=== PATIENT | female | born 1945 | race Caucasian/White ===

== ENCOUNTER 2017-11-05 19:20 | Emergency (ER) | payer MEDICARE, BC ==
[2017-11-05] MEDS ORDERED: Nitroglycerin 0.4 MG Tab.SL SL ONE (19:43)
[2017-11-05] MEDS ORDERED: Sodium Chloride 0.9% 10 ML Syringe FLUSH PRN (19:43)
[2017-11-05] MEDS ORDERED: Aspirin 81 MG Tab.Chew PO ONE (19:43)
[2017-11-05 19:50] VITALS: BP 168/93
--- NOTE | 2017-11-05 19:50 | EDM.PDOC ---
ED HPI GENERAL MEDICAL PROBLEM - General Chief Complaint: Cardiovascular Problem Stated Complaint: CHEST PAIN Time Seen by Provider: 11/05/17 19:28 Source of Information: Reports: Patient History Limitations: Reports: No Limitations - History of Present Illness INITIAL COMMENTS - FREE TEXT/NARRATIVE: The patient presents with chest pain. This has been coming and going for a week. She has known cardiac disease with an [place], CABG in 2009, stent in 2010 and 2014. She says the pain is like pressure in her chest that radiates into her neck and that pain is more sharp. She has some shortness of breath with it. She says it is worse with exertion. She is on nitro and she has taken many nitro in the past week. She only has 2 left. She has no fever, chills, cough, congestion, abdominal pain, nausea or vomiting. She has no pain in her legs but she has a little more swelling. She currently has some chest pain but it is mild. Onset: Gradual Duration: Day(s): (1) Location: Reports: Chest Quality: Reports: Pressure Severity: Mild Improves with: Reports: Immobilization Worsens with: Reports: Movement Associated Symptoms: Reports: Chest Pain, Shortness of Breath. Denies: Fever/ Chills, Headaches, Nausea/Vomiting Chest Pain Score (Numeric/FACES): 5 - Related Data Allergies Allergy/AdvReac Type Severity Reaction Status Date / Time rofecoxib [From Vioxx] Allergy Severe Edema Verified 06/12/16 05:04 gemfibrozil [From Lopid] Allergy Unknown Cannot Verified 06/12/16 05:04 Remember atorvastatin Allergy Cannot Verified 06/12/16 05:04 Remember fluvastatin Allergy Cannot Verified 06/12/16 05:04 Remember haloperidol [From Haldol] AdvReac Intermediate Tremors Verified 06/12/16 05:04 haloperidol lactate AdvReac Intermediate Tremors Verified 06/12/16 05:04 [From Haldol] morphine AdvReac Hallucinati Verified 06/12/16 05:04 ons Home Meds: Home Meds Biotin [Hard Nails] 5,000 mcg PO DAILY 11/29/13 [History] Furosemide [Lasix] 60 mg PO DAILY 11/29/13 [History] Isosorbide Dinitrate 30 mg PO BEDTIME 11/29/13 [History] Levothyroxine Sodium [Levoxyl] 150 mcg PO DAILY 11/29/13 [History] Lisinopril 2.5 mg PO BEDTIME 11/29/13 [History] Metoprolol Succinate [Toprol XL] 25 mg PO BID 11/29/13 [History] traZODone 50 mg PO BEDTIME 11/29/13 [History] Fesoterodine Fumarate [Toviaz] 4 mg PO DAILY 08/30/14 [History] Glimepiride 1 mg PO BEDTIME 06/15/15 [History] Aspirin 81 mg PO DAILY 06/27/15 [History] Clopidogrel [Plavix] 75 mg PO DAILY 06/27/15 [History] Cyanocobalamin (Vitamin B12) [Vitamin B12] 1,000 mcg PO DAILY 06/27/15 [History] Multivitamin [Multivitamins] 1 tab PO DAILY 06/27/15 [History] Nitroglycerin [Nitrostat] 0.4 mg PO ASDIRECTED PRN 06/27/15 [History] [place]-3 Fatty Acids [[place]-3] 1,000 mg PO DAILY 06/27/15 [History] Rosuvastatin [Crestor] 5 mg PO BEDTIME 06/27/15 [History] Ubidecarenone [COQ-10] 100 mg PO DAILY 06/27/15 [History] Albuterol [Ventolin HFA] 2 inh INH QID PRN 07/13/15 [History] Loperamide HCl [Imodium A-D] 2 mg PO ASDIRECTED PRN 07/13/15 [History] Calcium Carbonate [Tums] 500 mg PO QPM 12/02/15 [History] Gluc/Olvin-Msm#2/C/D3/Tod/Born [Hwqnpvvkbo-Hmxmxaximkt-EJF] 1 tab PO DAILY 12/01 [History] Omeprazole Magnesium [Prilosec Otc] 20 mg PO DAILY 05/21/16 [History] Ondansetron [Zofran ODT] 4 mg PO Q6H PRN #20 tab.dis 05/21/16 [Rx] FLUoxetine HCl [Prozac] 60 mg PO DAILY 06/09/16 [History] oxyCODONE HCl/Acetaminophen [Percocet 5-325 mg Tablet] 1 - 2 each PO Q6HR PRN # 20 tablet 06/10/16 [Rx] HYDROmorphone [Dilaudid] 2 mg PO Q4H PRN 06/12/16 [History] Past Medical History HEENT History: Reports: Cataract Cardiovascular History: Reports: CAD, High Cholesterol, Hypertension, SOB on Exertion, Stents, Other (See Below) Other Cardiovascular History: 2010 bypass .2011 stents x 2 --LAD and circumflex. Gastrointestinal History: Reports: GERD Genitourinary History: Reports: Chronic Renal Insuffiency, Other (See Below) Other Genitourinary History: urinary frequency Musculoskeletal History: Reports: Osteoarthritis Psychiatric History: Reports: Depression Endocrine/Metabolic History: Reports: Diabetes, Type I, Osteopenia - Infectious Disease History Infectious Disease History: Reports: MRSA Other Infectious Disease History: MRSA to chest incision, tested four times since, came back negatice. - Past Surgical History HEENT Surgical History: Reports: Tonsillectomy GI Surgical History: Reports: Bariatric Procedure, Cholecystectomy Neurological Surgical History: Reports: C-Spine Musculoskeletal Surgical History: Reports: Hip Replacement, Knee Replacement Social & Family History - Tobacco Use Smoking Status *Q: Former Smoker Years of Tobacco use: 10 Packs/Tins Daily: 0.5 Used Tobacco, but Quit: Yes Month/Year Tobacco Last Used: 1983 Second Hand Smoke Exposure: No - Caffeine Use Caffeine Use: Reports: None - Alcohol Use Days Per Week of Alcohol Use: 0 - Recreational Drug Use Recreational Drug Use: No ED ROS GENERAL - Review of Systems Review Of Systems: See Below Constitutional: Reports: No Symptoms HEENT: Reports: No Symptoms Respiratory: Reports: Shortness of Breath Cardiovascular: Reports: Chest Pain Endocrine: Reports: No Symptoms GI/Abdominal: Reports: No Symptoms : Reports: No Symptoms Musculoskeletal: Reports: No Symptoms ED EXAM, GENERAL - Physical Exam Exam: See Below Exam Limited By: No Limitations General Appearance: Alert, No Apparent Distress Ears: Normal External Exam Nose: Normal Inspection Head: Atraumatic, Normocephalic Neck: Normal Inspection Respiratory/Chest: No Respiratory Distress, Lungs Clear, Normal Breath Sounds Cardiovascular: Regular Rate, Rhythm, No Edema, No Murmur GI/Abdominal: Soft, Non-Tender, No Organomegaly, No Mass Back Exam: Normal Inspection Extremities: Normal Inspection EKG INTERPRETATION EKG Date: 11/05/17 Time: 19:28 Rhythm: NSR Rate (Beats/Min): 72 [place]: RAD-Right [place] Deviation P-Wave: Present QRS: Normal ST-T: Other (Flipped T waves in the anteriolateral leads) QT: Normal Comparison: No Change EKG Interpretation Comments: No changes from prior EKG Course - Vital Signs Last Recorded V/S: Last Vital Signs Temp 97.5 F 11/05/17 19:25 Pulse 75 11/05/17 19:25 Resp 18 11/05/17 19:25 BP 168/93 H 11/05/17 19:48 Pulse Ox 99 11/05/17 19:43 - Orders/Labs/Meds Orders: Active Orders 24 hr Category Date Time Status Cardiac Monitoring [RC] . DIRECTED Care 11/05/17 19:43 Active EKG Documentation Completion [RC] STAT Care 11/05/17 19:44 Active Oxygen Therapy [RC] PRN Care 11/05/17 19:43 Active Peripheral IV Care [RC] . DIRECTED Care 11/05/17 19:44 Active Chest 1V Frontal [CR] Stat Exams 11/05/17 19:44 Taken Sodium Chloride 0.9% [Saline Flush] Med 11/05/17 19:43 Active 10 ml FLUSH ASDIRECTED PRN Peripheral IV Insertion Adult [OM.PC] Stat Oth 11/05/17 19:43 Ordered Medication Orders Sodium Chloride (Saline Flush) 10 ml FLUSH ASDIRECTED PRN PRN Reason: Keep Vein Open Last Admin: 11/05/17 20:04 Dose: 10 ml Labs: Laboratory Tests 11/05/17 11/05/17 Range/Units 19:30 19:30 WBC 7.26 (3.98-10.04) K/mm3 RBC 4.04 (3.98-5.22) M/mm3 Hgb 13.0 (11.2-15.7) gm/L Hct 39.8 (34.1-44.9) % MCV 98.5 H (79.4-94.8) fl MCH 32.2 (25.6-32.2) pg MCHC 32.7 (32.2-35.5) g/dl RDW Std Deviation 45.5 (36.4-46.3) fL Plt Count 305 (182-369) K/mm3 MPV 9.2 L (9.4-12.3) fl Neut % (Auto) 52.3 (34.0-71.1) % Lymph % (Auto) 29.5 (19.3-51.7) % [place] % (Auto) 14.3 H (4.7-12.5) % Eos % (Auto) 3.7 (0.7-5.8) Baso % (Auto) 0.1 (0.1-1.2) % Neut # (Auto) 3.79 (1.56-6.13) K/mm3 Lymph # (Auto) 2.14 (1.18-3.74) K/mm3 [place] # (Auto) 1.04 H (0.24-0.36) K/mm3 Eos # (Auto) 0.27 (0.04-0.36) K/mm3 Baso # (Auto) 0.01 (0.01-0.08) K/mm3 Sodium 134 L (136-145) mEq/L Potassium 3.9 (3.5-5.1) mEq/L Chloride 100 (98-107) mEq/L Carbon Dioxide 29 (21-32) mEq/L Anion Gap 8.9 (5-15) BUN 31 H (7-18) mg/dL Creatinine 1.5 H (0.55-1.02) mg/dL Est Cr Clr Drug Dosing 28.87 mL/min Estimated GFR (MDRD) 34 (>60) mL/min BUN/Creatinine Ratio 20.7 H (14-18) Glucose 148 H (80-115) mg/dL Calcium 10.0 (8.5-10.1) mg/dL Total Bilirubin 0.4 (0.2-1.0) mg/dL AST 19 (15-37) U/L ALT 25 (14-59) U/L Alkaline Phosphatase 72 (46-116) U/L Troponin I < 0.017 (0.00-0.056) ng/mL Total Protein 7.5 (6.4-8.2) g/dl Albumin 3.8 (3.4-5.0) g/dl Globulin 3.7 gm/dL Albumin/Globulin Ratio 1.0 (1-2) Meds: Medications Generic Name Dose Route Start Last Admin Trade Name Freq PRN Reason Stop Dose Admin Sodium Chloride 10 ml 11/05/17 19:43 11/05/17 20:04 Saline Flush FLUSH 10 ml ASDIRECTED PRN Administration Keep Vein Open Discontinued Medications Generic Name Dose Route Start Last Admin Trade Name Masoud PRN Reason Stop Dose Admin Aspirin 324 mg 11/05/17 19:43 11/05/17 19:48 Aspirin PO 11/05/17 19:44 324 mg ONETIME ONE Administration Nitroglycerin 0.4 mg 11/05/17 19:43 11/05/17 19:48 Nitrostat SL 11/05/17 19:44 0.4 mg ONETIME ONE Administration - Re-Assessments/Exams Free Text/Narrative Re-Assessment/Exam: 11/05/17 19:49 I ordered an IV saline lock, aspirin, nitro, EKG, CXR and labs. 11/05/17 19:51 Her EKG shows a NSR with flipped T waves in the anterolateral leads. No change from prior. 11/05/17 20:40 Her CXR looks good. Her CBC looks good. Her Na was a little low at 134. Her creatinine was slightly elevated at 1.5. Her glucose was slightly elevated at 148. Her troponin was negative. 11/05/17 20:48 The 1 nitro I gave her did not help. I feel she has unstable angina and may need to see cardiology. I called [facility] in [place] and Dr Umanzor accepted the patient. I will start a nitro drip and give her a bolus of heparin and a heparin drip. Departure - Departure Time of Disposition: 20:50 Disposition: DC/Tfer to Acute Hospital 02 Reason for Transfer *Q: Other Condition: Fair Clinical Impression: Unstable angina Referrals: Chet Prater MD [Primary Care Provider] - Forms: ED Department Discharge - My Orders Last 24 Hours: My Active Orders 11/05/17 19:43 Cardiac Monitoring [RC] . DIRECTED Oxygen Therapy [RC] PRN Sodium Chloride 0.9% [Saline Flush] 10 ml FLUSH ASDIRECTED PRN Peripheral IV Insertion Adult [OM.PC] Stat 11/05/17 19:44 EKG Documentation Completion [RC] STAT Peripheral IV Care [RC] . DIRECTED Chest 1V Frontal [CR] Stat - Assessment/Plan Last 24 Hours: My Active Orders 11/05/17 19:43 Cardiac Monitoring [RC] . DIRECTED Oxygen Therapy [RC] PRN Sodium Chloride 0.9% [Saline Flush] 10 ml FLUSH ASDIRECTED PRN Peripheral IV Insertion Adult [OM.PC] Stat 11/05/17 19:44 EKG Documentation Completion [RC] STAT Peripheral IV Care [RC] . DIRECTED Chest 1V Frontal [CR] Stat
[2017-11-05] MEDS ORDERED: Nitroglycerin/D5W 25 MG/250 ML BOTTLE IV SCH ×2 (20:45→21:00)
[2017-11-05] MEDS ORDERED: Heparin Sodium 5,000 Units/ML Vial IVPUSH ONE (20:46)
[2017-11-05] MEDS ORDERED: HYDROmorphone 0.5 MG/0.5 ML SYRINGE IVPUSH ONE ×2 (20:52→21:32)
[2017-11-05] MEDS ORDERED: Heparin Sodium/D5W 25,000 UNITS/500 ML BAG IV SCH (21:00)
--- NOTE | 2017-11-06 07:37 | CR ---
Chest: Frontal view of the chest was obtained. Comparison: Prior chest x-ray 12/02/15. Heart size is slightly enlarged. Previous sternotomy is noted. Lungs are clear with no acute parenchymal densities. Previous cervical spine surgery is noted as well as previous lumbar spine surgery. Degenerative change is seen within the right shoulder. Impression: 1. Incidental findings. Nothing acute is identified. Diagnostic code #2
== END 2017-11-05 21:37 ==
LOC: JD.ED 19:20
DX: I20.0 Unstable angina (principal); I12.9 Hypertensive chronic kidney disease with stage 1 through stage 4 chronic kidney disease, or unspecified chronic kidney disease; E78.00 Pure hypercholesterolemia, unspecified; N18.9 Chronic kidney disease, unspecified; E10.22 Type 1 diabetes mellitus with diabetic chronic kidney disease; Z88.5 Allergy status to narcotic agent; Z88.8 Allergy status to other drugs, medicaments and biological substances; Z79.899 Other long term (current) drug therapy; Z79.82 Long term (current) use of aspirin; Z87.891 Personal history of nicotine dependence
CPT/HCPCS: 36415; 71045; 80053; 84484; 85025; 93005; 96365; 96368; 96375; 96376; 99285; A9270; J1170; J1644; J7050; 93010; 99284-25

== ENCOUNTER 2018-07-18 10:55 | Emergency (ER) | payer MEDICARE, BC, MEDICAID ==
[2018-07-18 11:23] VITALS: BP 143/78
[2018-07-18] MEDS ORDERED: Acetaminophen/oxyCODONE 325-5 MG Tab PO ONE (12:38)
[2018-07-18] MEDS ORDERED: Lidocaine 1% 20 ML MDV INJECT ONE (12:38)
[2018-07-18] MEDS ORDERED: Lidocaine 1% 30 ML SDV ONE (12:45)
[2018-07-18] MEDS ORDERED: Lidocaine 1% 30 ML SDV INJECT STA (12:48)
--- NOTE | 2018-07-18 14:56 | EDM.PDOC ---
ED HPI GENERAL MEDICAL PROBLEM - General Chief Complaint: Skin Complaint Stated Complaint: ABCESS ON ABDOMEN Time Seen by Provider: 07/18/18 12:20 Source of Information: Reports: Patient History Limitations: Reports: No Limitations - History of Present Illness INITIAL COMMENTS - FREE TEXT/NARRATIVE: 72 year old female present for evaluation and treatment of an abscess to her right lower abdomen. Patient reports she first appreciated the abscess about one week ago. She was seen in the walk-in clinic yesterday and started on cephalexin. No I&D was preformed. Reports since being seen the area has increased in size and become more painful. She was told to come to the ER if her symptoms change or worsen. No fevers, chills, nausea or vomiting. Clinic did set her up with a follow-up appointment with surgery next week for evaluation of the abscess. Patient is on plavix and aspirin, she has currently stopped these medications since July 15 due to an upcoming carpel tunnel surgery. Patient is a diabetic with a remote history of MRSA. PCP is Dr. Prater. Treatments EDUCATIONAL FUNDRAISING DIRECTOR: Reports: Other (see below) Other Treatments EDUCATIONAL FUNDRAISING DIRECTOR: anitibioitc Right Lower Abdomen Pain Score (Numeric/FACES): 4 - Related Data Allergies Allergy/AdvReac Type Severity Reaction Status Date / Time rofecoxib [From Vioxx] Allergy Severe Edema Verified 02/12/18 11:15 gemfibrozil [From Lopid] Allergy Unknown Cannot Verified 02/12/18 11:15 Remember atorvastatin Allergy Cannot Verified 02/12/18 11:15 Remember fluvastatin Allergy Cannot Verified 02/12/18 11:15 Remember haloperidol [From Haldol] AdvReac Intermediate Tremors Verified 02/12/18 11:15 haloperidol lactate AdvReac Intermediate Tremors Verified 02/12/18 11:15 [From Haldol] morphine AdvReac Hallucinati Verified 02/12/18 11:15 ons Home Meds: Home Meds Biotin [Hard Nails] 5,000 mcg PO DAILY 11/29/13 [History] Furosemide [Lasix] 60 mg PO DAILY 11/29/13 [History] Isosorbide Dinitrate 30 mg PO BEDTIME 11/29/13 [History] Levothyroxine Sodium [Levoxyl] 150 mcg PO DAILY 11/29/13 [History] Lisinopril 2.5 mg PO BEDTIME 11/29/13 [History] Metoprolol Succinate [Toprol XL] 25 mg PO BID 11/29/13 [History] traZODone 50 mg PO BEDTIME 11/29/13 [History] Fesoterodine Fumarate [Toviaz] 4 mg PO DAILY 08/30/14 [History] Glimepiride 1 mg PO BEDTIME 06/15/15 [History] Aspirin 81 mg PO DAILY 06/27/15 [History] Clopidogrel [Plavix] 75 mg PO DAILY 06/27/15 [History] Cyanocobalamin (Vitamin B12) [Vitamin B12] 1,000 mcg PO DAILY 06/27/15 [History] Multivitamin [Multivitamins] 1 tab PO DAILY 06/27/15 [History] Nitroglycerin [Nitrostat] 0.4 mg PO ASDIRECTED PRN 06/27/15 [History] [place]-3 Fatty Acids [[place]-3] 1,000 mg PO DAILY 06/27/15 [History] Rosuvastatin [Crestor] 5 mg PO BEDTIME 06/27/15 [History] Ubidecarenone [COQ-10] 100 mg PO DAILY 06/27/15 [History] Albuterol [Ventolin HFA] 2 inh INH QID PRN 07/13/15 [History] Loperamide HCl [Imodium A-D] 2 mg PO ASDIRECTED PRN 07/13/15 [History] Calcium Carbonate [Tums] 500 mg PO QPM 12/02/15 [History] Gluc/Olvin-Msm#2/C/D3/Tod/Born [Hjwivcveax-Tcoyzqxilqf-LAI] 1 tab PO DAILY 12/01 [History] Omeprazole Magnesium [Prilosec Otc] 20 mg PO DAILY 05/21/16 [History] Ondansetron [Zofran ODT] 4 mg PO Q6H PRN #20 tab.dis 05/21/16 [Rx] FLUoxetine HCl [Prozac] 60 mg PO DAILY 06/09/16 [History] oxyCODONE HCl/Acetaminophen [Percocet 5-325 mg Tablet] 1 - 2 each PO Q6HR PRN # 20 tablet 06/10/16 [Rx] HYDROmorphone [Dilaudid] 2 mg PO Q4H PRN 06/12/16 [History] Doxycycline [Vibramycin] 100 mg PO BID #20 cap 07/18/18 [Rx] Past Medical History HEENT History: Reports: Cataract Cardiovascular History: Reports: CAD, High Cholesterol, Hypertension, SOB on Exertion, Stents, Other (See Below) Other Cardiovascular History: 2010 bypass .2011 stents x 2 --LAD and circumflex. Gastrointestinal History: Reports: GERD Genitourinary History: Reports: Chronic Renal Insuffiency, Other (See Below) Other Genitourinary History: urinary frequency Musculoskeletal History: Reports: Osteoarthritis Psychiatric History: Reports: Depression Endocrine/Metabolic History: Reports: Diabetes, Type I, Osteopenia - Infectious Disease History Infectious Disease History: Reports: MRSA Other Infectious Disease History: MRSA to chest incision, tested four times since, came back negatice. confirmed with Artem Avilez as being clear of MRSA - Past Surgical History HEENT Surgical History: Reports: Tonsillectomy GI Surgical History: Reports: Bariatric Procedure, Cholecystectomy Neurological Surgical History: Reports: C-Spine Musculoskeletal Surgical History: Reports: Hip Replacement, Knee Replacement Social & Family History - Tobacco Use Smoking Status *Q: Former Smoker Used Tobacco, but Quit: Yes Month/Year Tobacco Last Used: 1984 - Caffeine Use Caffeine Use: Reports: Soda - Recreational Drug Use Recreational Drug Use: No ED ROS GENERAL - Review of Systems Review Of Systems: See Below Constitutional: Denies: Fever, Chills GI/Abdominal: Denies: Nausea, Vomiting Skin: Reports: Wound (right lower abdomen) ED EXAM, SKIN/RASH Exam: See Below Exam Limited By: No Limitations General Appearance: Alert, WD/WN, No Apparent Distress, Obese Respiratory/Chest: No Respiratory Distress, Lungs Clear, Normal Breath Sounds Cardiovascular: Normal Peripheral Pulses, Regular Rate, Rhythm, No Murmur Psychiatric: Normal Affect, Normal Mood Skin: Warm, Dry, Normal Color, Erythema, Other (approximately golf ball sized abscess to the right lower abdomen with surrounding erythema estimated to be about 5 cm in diameter, slight serous drainage from the area; area is fluctent in the center wtih surrounding induration; tender to palpation) Location, Skin: Abdomen Characteristics: Erythematous Associated features: Tenderness, Induration, Weeping ED SKIN PROCEDURES - I&D Site: left lower abdomen Skin Prep: Chlorhexidine (Hibiciens), Sterile Drape Local Anesthesia: Lidocaine: 1% Plain Local Anesthetic Volume: 1cc Area Incised With: 11 Blade Drainage: Purulent, Bloody, Moderate Amount Probed to Break Up Loculations: Yes Packed With: 1/2 in. Iodoform Sterile Dressinx4(s) Complications: No Course - Vital Signs Last Recorded V/S: Last Vital Signs Temp 97.4 F 07/18/18 11:22 Pulse 84 07/18/18 11:22 Resp 20 07/18/18 11:22 BP 143/78 H 07/18/18 11:22 Pulse Ox 97 07/18/18 11:22 - Orders/Labs/Meds Meds: Medications Discontinued Medications Generic Name Dose Route Start Last Admin Trade Name Masoud PRN Reason Stop Dose Admin Lidocaine HCl 20 ml 07/18/18 12:38 07/18/18 12:49 Xylocaine 1% INJECT 07/18/18 12:39 Not Given ONETIME ONE Lidocaine HCl Confirm 07/18/18 12:45 07/18/18 12:49 Xylocaine-Mpf 1% Administered 07/18/18 12:46 Not Given Dose 30 ml .ROUTE .STK-MED ONE Lidocaine HCl 30 ml 07/18/18 12:48 07/18/18 12:49 Xylocaine-Mpf 1% INJECT 07/18/18 12:49 30 ml ONETIME STA Administration Oxycodone/Acetaminophen 1 tab 07/18/18 12:38 07/18/18 12:47 Percocet 325-5 Mg PO 07/18/18 12:39 1 tab ONETIME ONE Administration - Re-Assessments/Exams Free Text/Narrative Re-Assessment/Exam: 07/18/18 14:49 I&D preformed of the abscess. Pain improved after I&D. Will switch to doxycycline as she is a diabetic and has a remote history of MRSA. Encouraged to follow-up with surgery as planned. Return to the ER should symptoms change or worsen. Purulent material sent for culture. Discharge instructions as documented. Departure - Departure Time of Disposition: 14:49 Disposition: Home, Self-Care 01 Condition: Fair Clinical Impression: Abscess, Cellulitis - Discharge Information *PRESCRIPTION DRUG MONITORING PROGRAM REVIEWED*: No *COPY OF PRESCRIPTION DRUG MONITORING REPORT IN PATIENT VAN: No Prescriptions: Doxycycline [Vibramycin] 100 mg PO BID #20 cap Instructions: Cellulitis, Adult, [id number] Referrals: Chet Prater MD [Primary Care Provider] - Forms: ED Department Discharge Additional Instructions: Take the doxycycline as prescribed. 1 Twice a day. Take this with food. Stop the cephalexin. Change the bandage daily. You can shower. Follow-up with the surgeon on Saturday as planned. If the packing does fall out. No need to worry but do attempt to leave the packing in as long as possible. Please return to the ER for symptoms change or worsen. Cultures of the abscess have been obtained. We will call you in about 2 days times if the need to change your antibiotics. If you do not hear from us assume you are on the correct antibiotic and no changes are needed.
== END 2018-07-18 15:20 | disposition home or self-care (01) ==
LOC: JD.ED 10:55
DX: L03.311 Cellulitis of abdominal wall (principal); L02.211 Cutaneous abscess of abdominal wall; I12.9 Hypertensive chronic kidney disease with stage 1 through stage 4 chronic kidney disease, or unspecified chronic kidney disease; E10.22 Type 1 diabetes mellitus with diabetic chronic kidney disease; N18.9 Chronic kidney disease, unspecified; Z87.891 Personal history of nicotine dependence; Z88.8 Allergy status to other drugs, medicaments and biological substances; Z88.5 Allergy status to narcotic agent; Z79.899 Other long term (current) drug therapy; Z79.82 Long term (current) use of aspirin
CPT/HCPCS: 10060; 87075; 87205; 99283; A9270

== ENCOUNTER 2018-10-22 07:20 | Emergency (ER) | payer MEDICARE, BC ==
[2018-10-22] MEDS ORDERED: HYDROmorphone 1 MG/ML Syringe IVPUSH STA ×2 (07:54→08:56)
[2018-10-22] MEDS ORDERED: Ondansetron 4 MG/2 ML SDV IVPUSH ONE ×2 (07:57→08:56)
--- NOTE | 2018-10-22 07:59 | EDM.PDOC ---
ED HPI GENERAL MEDICAL PROBLEM - General Chief Complaint: Chest Pain Stated Complaint: CHEST PAIN Time Seen by Provider: 10/22/18 07:32 Source of Information: Reports: Patient History Limitations: Reports: No Limitations - History of Present Illness INITIAL COMMENTS - FREE TEXT/NARRATIVE: The patient states that she developed sudden onset retrosternal chest pain around 07:15 this morning, just after she has injected with Lexiscan for a scheduled stress test. She noticed at the time that her heart rate went up and her blood pressure went low. The pain is sharp and heavy in character. It is a pain, not a discomfort. It radiates to her jaw, the left more than the right. She denies having shortness of breath, but states like it feels like it takes an increased effort to breathe. She states that she was diaphoretic initially, but not now. No associated nausea. It is unclear if she has an associated sense of impending doom. She states that her symptoms are the same as when she suffered a IL in 2014, although different than when she was suffering angina prior to a two-vessel CABG in 2009 and coronary stent placements in 2010 and 2017. Prior to those events, the patient had more jaw pain, and not so much chest pain. The patient states that she took one of her own sublingual nitroglycerin tablets after her blood pressure improved, and that the nitroglycerin improved her symptoms. The patient's PCP is Dr. Prater. The patient's Marketing Senior Recruiter is Dr. Phillips. Mid-Sternal Chest Pain Score (Numeric/FACES): 3 - Related Data Allergies Allergy/AdvReac Type Severity Reaction Status Date / Time rofecoxib [From Vioxx] Allergy Intermediate Edema Verified 10/22/18 07:28 gemfibrozil [From Lopid] Allergy Unknown Cannot Verified 10/22/18 07:28 Remember atorvastatin Allergy Cannot Verified 10/22/18 07:28 Remember fluvastatin Allergy Cannot Verified 10/22/18 07:28 Remember haloperidol [From Haldol] AdvReac Intermediate Tremors Verified 10/22/18 07:28 haloperidol lactate AdvReac Intermediate Tremors Verified 10/22/18 07:28 [From Haldol] morphine AdvReac Hallucinati Verified 10/22/18 07:28 ons Home Meds: Home Meds Biotin [Hard Nails] 5,000 mcg PO DAILY 11/29/13 [History] Isosorbide Dinitrate 30 mg PO BEDTIME 11/29/13 [History] Levothyroxine Sodium [Levoxyl] 150 mcg PO DAILY 11/29/13 [History] traZODone 50 mg PO BEDTIME 11/29/13 [History] Fesoterodine Fumarate [Toviaz] 8 mg PO DAILY 08/30/14 [History] Glimepiride 2 mg PO BEDTIME 06/15/15 [History] Aspirin 81 mg PO DAILY 06/27/15 [History] Clopidogrel [Plavix] 75 mg PO DAILY 06/27/15 [History] Cyanocobalamin (Vitamin B12) [Vitamin B12] 1,000 mcg PO DAILY 06/27/15 [History] Multivitamin [Multivitamins] 1 tab PO DAILY 06/27/15 [History] Nitroglycerin [Nitrostat] 0.4 mg PO ASDIRECTED PRN 06/27/15 [History] [place]-3 Fatty Acids [[place]-3] 1,000 mg PO DAILY 06/27/15 [History] Rosuvastatin [Crestor] 20 mg PO BEDTIME 06/27/15 [History] Ubidecarenone [COQ-10] 100 mg PO DAILY 06/27/15 [History] Omeprazole Magnesium [Prilosec Otc] 20 mg PO DAILY 05/21/16 [History] FLUoxetine HCl [Prozac] 60 mg PO DAILY 06/09/16 [History] Calcium Carb & Citrate/Vit D3 [Citracal + D ER] 200 - 600 mg PO BID 10/22/18 [ History] Cholecalciferol (Vitamin D3) [Vitamin D3] 5,000 unit PO DAILY 10/22/18 [History] Ciclopirox/Ure/Camph/Menth/Euc [Ciclopirox 8% Treatment Kit] 1 applic TOP BID [History] Denosumab [Prolia] 60 mg INJECT ASDIRECTED 10/22/18 [History] L Acidophil/B Lactis/B Longum [Florajen3] 460 mg PO DAILY 10/22/18 [History] Metoprolol Tartrate 12.5 mg PO DAILY 10/22/18 [History] Phenylephrine HCl/[place] Butter [Preparation H Suppository] 1 insert RECTAL ASDIRECTED PRN 10/22/18 [History] Triamcinolone Acetonide [Triamcinolone Acetonide 0.025%] 1 applic TOP BID PRN [History] White Petrolatum-Mineral Oil 1 drop EYEBOTH QID 10/22/18 [History] Past Medical History HEENT History: Reports: Cataract Cardiovascular History: Reports: CAD, High Cholesterol, Hypertension, IL (2014) Gastrointestinal History: Reports: GERD Genitourinary History: Reports: Chronic Renal Insuffiency Musculoskeletal History: Reports: Fracture (right ankle), Osteoarthritis, Osteoporosis Psychiatric History: Reports: Depression, Other (See Below) (Irritable bowel syndrome) Endocrine/Metabolic History: Reports: Diabetes, Type II, Hypothyroidism, Obesity /BMI 30+ - Infectious Disease History Infectious Disease History: Reports: MRSA - Past Surgical History HEENT Surgical History: Reports: Oral Surgery (wisdom teeth extraction), Tonsillectomy (1977) Cardiovascular Surgical History: Reports: Coronary Artery Bypass (2 vessel, 2009 ), Coronary Artery Stent (3 total, LAD + Cx. 2010 & 2017) GI Surgical History: Reports: Bariatric Procedure (vertical banded gastroplasty ("stomach stapling") 1980), Cholecystectomy (1998) Neurological Surgical History: Reports: C-Spine (C4-C6 ACDF), Lumbar Spine ( Lumbar fusion x 6) Musculoskeletal Surgical History: Reports: Hip Replacement (bilateral), Knee Replacement (bilateral) Social & Family History - Tobacco Use Smoking Status *Q: Former Smoker Years of Tobacco use: 10 Packs/Tins Daily: 1 Month/Year Tobacco Last Used: Quit 1983 Second Hand Smoke Exposure: No - Caffeine Use Caffeine Use: Reports: None - Alcohol Use Alcohol Use History: Yes Alcohol Use Frequency: Rarely - Recreational Drug Use Recreational Drug Use: No - Living Situation & Occupation Living situation: Reports: Single, Alone 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 ED EXAM, GENERAL - Physical Exam Exam: See Below Exam Limited By: No Limitations General Appearance: Alert, WD/WN, No Apparent Distress Eye Exam: Bilateral Eye: EOMI, Normal Inspection Ears: Normal External Exam, Hearing Grossly Normal Nose: Normal Inspection Throat/Mouth: Normal Inspection, Normal Lips, Normal Voice, No Airway Compromise Head: Atraumatic, Normocephalic Neck: Normal Inspection, Full Range of Motion Respiratory/Chest: No Respiratory Distress, Lungs Clear, Normal Breath Sounds, No Accessory Muscle Use, Chest Non-Tender (including palpation of the sternum) Cardiovascular: Normal Peripheral Pulses, Regular Rate, Rhythm, No Gallop, No JVD, No Murmur, No Rub Peripheral Pulses: 4+: Radial (L), Radial (R) GI/Abdominal: Normal Bowel Sounds, Soft, Non-Tender, No Organomegaly, No Distention, No Abnormal Bruit, No Mass, Other (Obese) (Female) Exam: Deferred Rectal (Female) Exam: Deferred Back Exam: Normal Inspection, Full Range of Motion Extremities: Normal Inspection, Normal Range of Motion, Normal Capillary Refill Neurological: Alert, Oriented, Normal Cognition, No Motor/Sensory Deficits Psychiatric: Normal Affect Skin Exam: Warm, Dry, Intact, Normal Color, No Rash Course - Vital Signs Last Recorded V/S: Last Vital Signs Temp 36.2 C 10/22/18 10:20 Pulse 70 10/22/18 10:20 Resp 19 10/22/18 10:20 BP 106/49 L 10/22/18 10:20 Pulse Ox 95 10/22/18 10:20 - Orders/Labs/Meds Orders: Active Orders 24 hr Category Date Time Status EKG Documentation Completion [RC] STAT Care 10/22/18 07:54 Active Labs: Laboratory Tests 10/22/18 10/22/18 10/22/18 Range/Units 08:07 08:07 11:25 WBC 8.61 (3.98-10.04) K/mm3 RBC 4.20 (3.98-5.22) M/mm3 Hgb 13.4 (11.2-15.7) gm/L Hct 40.9 (34.1-44.9) % MCV 97.4 H (79.4-94.8) fl MCH 31.9 (25.6-32.2) pg MCHC 32.8 (32.2-35.5) g/dl RDW Std Deviation 45.1 (36.4-46.3) fL Plt Count 322 (182-369) K/mm3 MPV 9.1 L (9.4-12.3) fl Neutrophils % (Manual) 76 H (40-60) % Band Neutrophils % 0 (0-10) % Lymphocytes % (Manual) 18 L (20-40) % Atypical Lymphs % 0 % Monocytes % (Manual) 6 (2-10) % Eosinophils % (Manual) 0 L (0.7-5.8) % Basophils % (Manual) 0 L (0.1-1.2) Platelet Estimate Adequate Polychromasia 1+ slight Anisocytosis 1+ slight RBC Morph Comment Abnormal Sodium 137 (136-145) mEq/L Potassium 4.2 (3.5-5.1) mEq/L Chloride 102 (98-107) mEq/L Carbon Dioxide 26 (21-32) mEq/L Anion Gap 13.2 (5-15) BUN 17 (7-18) mg/dL Creatinine 1.3 H (0.55-1.02) mg/dL Est Cr Clr Drug Dosing 32.83 mL/min Estimated GFR (MDRD) 40 (>60) mL/min BUN/Creatinine Ratio 13.1 L (14-18) Glucose 268 H (83-115) mg/dL Calcium 9.3 (8.5-10.1) mg/dL Total Bilirubin 0.3 (0.2-1.0) mg/dL AST 19 (15-37) U/L ALT 31 (14-59) U/L Alkaline Phosphatase 74 (46-116) U/L Troponin I < 0.017 < 0.017 (0.00-0.056) ng/mL Total Protein 6.8 (6.4-8.2) g/dl Albumin 3.2 L (3.4-5.0) g/dl Globulin 3.6 gm/dL Albumin/Globulin Ratio 0.9 L (1-2) Meds: Medications Discontinued Medications Generic Name Dose Route Start Last Admin Trade Name Freq PRN Reason Stop Dose Admin Hydromorphone HCl 0.5 mg 10/22/18 07:54 10/22/18 08:00 Dilaudid IVPUSH 10/22/18 07:55 0.5 mg ONETIME STA Administration Hydromorphone HCl 0.5 mg 10/22/18 08:56 10/22/18 09:10 Dilaudid IVPUSH 10/22/18 08:57 0.5 mg ONETIME STA Administration Ondansetron HCl 4 mg 10/22/18 07:57 10/22/18 08:03 Zofran IVPUSH 10/22/18 07:58 4 mg ONETIME ONE Administration Ondansetron HCl 4 mg 10/22/18 08:56 10/22/18 09:08 Zofran IVPUSH 10/22/18 08:57 4 mg ONETIME ONE Administration - Re-Assessments/Exams Free Text/Narrative Re-Assessment/Exam: 10/22/18 07:56 I suspect that the patient is suffering from angina, although I also anticipate that her initial labs will be negative. Her ECG shows some ST depressions in the anterolateral leads, although these appear to be chronic. Her T waves were inverted on her previous ECG, but are upright today. The patient will be given some Dilaudid and Zofran to help with her discomfort. Presuming her initial troponin is negative, we will need to draw a second troponin to exclude a IL. 10/22/18 08:52 Portable chest radiograph reviewed. There is mild cardiomegaly. No pulmonary vascular congestion. No pleural effusion seen on this AP view. No focal infiltrate. No pneumothorax. Sternotomy wires noted. Cervical and lumbar fusion hardware noted. Degenerative changes to both shoulders incidentally noted. Formal read per the Radiologist pending. The patient's CBC is unremarkable. The patient's CMP is remarkable for creatinine slightly elevated at 1.3, and a blood glucose elevated at 268. It is otherwise unremarkable. The patient's initial troponin is undetectably low. I have ordered a second troponin to be drawn at 11:15, 4 hours after the onset of her chest pain. 10/22/18 08:56 The patient states that the Dilaudid that she received earlier helped with her chest pain, but that it is back. I will order some additional Dilaudid and Zofran. 10/22/18 10:07 Today's Lexiscan stress test results are reported by Dr. Frausto as: Symptomatically positive electrocardiographically negative Lexiscan stress test. She tolerated the procedure well, was discharged in good condition to the x-ray department to complete the stress test protocol. 10/22/18 12:45 The patient's repeat troponin remains undetectably low. Myocardial perfusion stress test report is read as: 1. Findings which are felt compatible with reversible ischemia within portions of the anterior and lateral pineda. This finding is an interval change from previous exam. 2. No additional abnormality is seen. 10/22/18 13:00 Case discussed with the patient's Marketing Senior Recruiter, Dr. Hyde, at 12:53. He reviewed his prior notes. He recommended that the patient stay on her Imdur, then call to make an appointment to see him. 10/22/18 13:04 Test results and my conversation with Dr. Hyde discussed with the patient. The patient states that she is feeling well. I will discharge her home. Departure - Departure Time of Disposition: 13:04 Disposition: Home, Self-Care 01 Condition: Good Clinical Impression: Angina pectoris, Hyperglycemia due to type 2 diabetes mellitus, Chronic renal insufficiency Referrals: Chet Prater MD [Primary Care Provider] - Moris Hyde MD [Ordering Only Provider] - Forms: ED Department Discharge Additional Instructions: You were seen in the emergency room after developing chest pain and jaw pain while getting a stress test. Workup in the ER included blood work, a portable chest x-ray, and an ECG. Your blood sugar was found to be elevated at 268, and you were found to have mild renal insufficiency. Otherwise, the remainder of your workup was unremarkable. You have not suffered a heart attack. Your case was discussed with your Marketing Senior Recruiter, Dr. Hyde, who recommended that you continue to take Imdur 30 mg at bedtime, and call his office to make an appointment to see him. His staff will be expecting your call. If any other problems, please do not hesitate to return to the ER. - My Orders Last 24 Hours: My Active Orders 10/22/18 07:54 EKG Documentation Completion [RC] STAT - Assessment/Plan Last 24 Hours: My Active Orders 10/22/18 07:54 EKG Documentation Completion [RC] STAT
--- NOTE | 2018-10-22 09:06 | CR ---
Chest: Portable view of the chest was obtained. Comparison: Prior chest x-ray of 11/05/17. Heart size is slightly enlarged. Previous sternotomy is noted. Lungs show no acute parenchymal change. Degenerative change is noted within both shoulders. Previous cervical spine and lumbar spine surgery is noted. Impression: 1. Incidental findings. Nothing acute is seen on portable chest x-ray. Diagnostic code #2
[2018-10-22 13:07] VITALS: BP 120/65
== END 2018-10-22 13:15 | disposition home or self-care (01) ==
LOC: JD.ED 07:20 → SUPCPDRO 07:20 → JD.ED 13:15
DX: I20.9 Angina pectoris, unspecified (principal); I12.9 Hypertensive chronic kidney disease with stage 1 through stage 4 chronic kidney disease, or unspecified chronic kidney disease; N18.9 Chronic kidney disease, unspecified; E11.65 Type 2 diabetes mellitus with hyperglycemia; E11.22 Type 2 diabetes mellitus with diabetic chronic kidney disease; E03.9 Hypothyroidism, unspecified; E78.00 Pure hypercholesterolemia, unspecified; I25.2 Old myocardial infarction; K21.9 Gastro-esophageal reflux disease without esophagitis; Z88.8 Allergy status to other drugs, medicaments and biological substances; Z88.5 Allergy status to narcotic agent; Z79.899 Other long term (current) drug therapy; Z79.82 Long term (current) use of aspirin; Z79.01 Long term (current) use of anticoagulants; Z87.891 Personal history of nicotine dependence
CPT/HCPCS: 36415; 71045; 80053; 84484; 85007; 85027; 93005; 96374; 96375; 96376; 99285; J1170; J2405; 93010

== ENCOUNTER 2019-05-04 10:15 | Emergency (ER) | payer MEDICARE, BC ==
[2019-05-04 10:25] VITALS: BP 98/82; PULSE 95
[2019-05-04] MEDS ORDERED: Ondansetron 4 MG Tab.DIS PO ONE (10:57)
--- NOTE | 2019-05-04 11:12 | EDM.PDOC ---
ED HPI GENERAL MEDICAL PROBLEM - General Chief Complaint: Allergic Reaction Stated Complaint: REACTION TO NEW MEDICATION Time Seen by Provider: 05/04/19 10:51 Source of Information: Reports: Patient History Limitations: Reports: No Limitations - History of Present Illness INITIAL COMMENTS - FREE TEXT/NARRATIVE: The patient presents with a headache, nausea and vomiting. She says she started on wellbutrin 2 times per day. She woke up this morning with a headache , nausea and vomiting. She remembers in the past with haldol she reacted this way. She also has been having some reflux symptoms. She has no shortness of breath with it. She has no abdominal pain. She has no numbness or weakness. She says the headache is like a cap on her head. Onset: Gradual Duration: Hour(s): Location: Reports: Head Quality: Reports: Ache Severity: Moderate Improves with: Reports: None Worsens with: Reports: None Associated Symptoms: Reports: Chest Pain, Headaches. Denies: Cough, Fever/ Chills, Nausea/Vomiting, Shortness of Breath Headache Pain Score (Numeric/FACES): 3 - Related Data Allergies Allergy/AdvReac Type Severity Reaction Status Date / Time rofecoxib [From Vioxx] Allergy Intermediate Edema Verified 05/04/19 10:25 gemfibrozil [From Lopid] Allergy Unknown Cannot Verified 05/04/19 10:25 Remember atorvastatin Allergy Cannot Verified 05/04/19 10:25 Remember fluvastatin Allergy Cannot Verified 05/04/19 10:25 Remember haloperidol [From Haldol] AdvReac Intermediate Tremors Verified 05/04/19 10:25 haloperidol lactate AdvReac Intermediate Tremors Verified 05/04/19 10:25 [From Haldol] morphine AdvReac Hallucinati Verified 05/04/19 10:25 ons Home Meds: Home Meds Biotin [Hard Nails] 5,000 mcg PO DAILY 11/29/13 [History] Isosorbide Dinitrate 60 mg PO BEDTIME 11/29/13 [History] Levothyroxine Sodium [Levoxyl] 150 mcg PO DAILY 11/29/13 [History] Fesoterodine Fumarate [Toviaz] 8 mg PO DAILY 08/30/14 [History] Glimepiride 4 mg PO DAILY 06/15/15 [History] Aspirin 81 mg PO DAILY 06/27/15 [History] Clopidogrel [Plavix] 75 mg PO DAILY 06/27/15 [History] Cyanocobalamin (Vitamin B12) [Vitamin B12] 1,000 mcg PO DAILY 06/27/15 [History] Multivitamin [Multivitamins] 1 tab PO DAILY 06/27/15 [History] Nitroglycerin [Nitrostat] 0.4 mg PO ASDIRECTED PRN 06/27/15 [History] [place]-3 Fatty Acids [[place]-3] 1,000 mg PO DAILY 06/27/15 [History] Rosuvastatin [Crestor] 10 mg PO BEDTIME 06/27/15 [History] Ubidecarenone [COQ-10] 100 mg PO DAILY 06/27/15 [History] Omeprazole Magnesium [Prilosec Otc] 40 mg PO DAILY 05/21/16 [History] FLUoxetine HCl [Prozac] 60 mg PO DAILY 06/09/16 [History] Calcium Carb & Citrate/Vit D3 [Citracal + D ER] 200 - 600 mg PO BID 10/22/18 [ History] Cholecalciferol (Vitamin D3) [Vitamin D3] 5,000 unit PO DAILY 10/22/18 [History] Ciclopirox/Ure/Camph/Menth/Euc [Ciclopirox 8% Treatment Kit] 1 applic TOP BID [History] Denosumab [Prolia] 60 mg INJECT ASDIRECTED 10/22/18 [History] Metoprolol Tartrate 12.5 mg PO DAILY 10/22/18 [History] Phenylephrine HCl/[place] Butter [Preparation H Suppository] 1 insert RECTAL ASDIRECTED PRN 10/22/18 [History] Triamcinolone Acetonide [Triamcinolone Acetonide 0.025%] 1 applic TOP BID PRN [History] White Petrolatum-Mineral Oil 1 drop EYEBOTH QID 10/22/18 [History] Dulaglutide [Trulicity] 75 mg INJECT WEEKLY 05/04/19 [History] Ezetimibe [Zetia] 10 mg PO BEDTIME 05/04/19 [History] L.acidoph,Paracasei, B.lactis [Probiotic] 1 cap PO DAILY 05/04/19 [History] Ondansetron [Zofran ODT] 4 mg PO Q6H PRN #20 tab.dis 10/21/19 [Rx] Past Medical History HEENT History: Reports: Cataract Cardiovascular History: Reports: CAD, High Cholesterol, Hypertension, [place] Other Cardiovascular History: 2010 bypass .2011 stents x 2 --LAD and circumflex. Gastrointestinal History: Reports: GERD Genitourinary History: Reports: Chronic Renal Insuffiency Other Genitourinary History: urinary frequency Musculoskeletal History: Reports: Fracture, Osteoarthritis, Osteoporosis Psychiatric History: Reports: Depression, Other (See Below) Endocrine/Metabolic History: Reports: Diabetes, Type II, Hypothyroidism, Obesity /BMI 30+ - Infectious Disease History Infectious Disease History: Reports: MRSA Other Infectious Disease History: MRSA to chest incision, tested four times since, came back negative. confirmed with Artem Alaniz'gilson as being clear of MRSA - Past Surgical History HEENT Surgical History: Reports: Oral Surgery, Tonsillectomy Cardiovascular Surgical History: Reports: Coronary Artery Bypass, Coronary Artery Stent GI Surgical History: Reports: Bariatric Procedure, Cholecystectomy Neurological Surgical History: Reports: C-Spine, Lumbar Spine Musculoskeletal Surgical History: Reports: Hip Replacement, Knee Replacement Social & Family History - Tobacco Use Smoking Status *Q: Never Smoker - Caffeine Use Caffeine Use: Reports: Soda - Recreational Drug Use Recreational Drug Use: No - Living Situation & Occupation Living situation: Reports: Single, Alone 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 Denies: Abdominal Pain : Reports: No Symptoms Musculoskeletal: Reports: No Symptoms Skin: Reports: No Symptoms Neurological: Reports: Headache ED EXAM GENERAL NO PERIP PULSE - Physical Exam Exam: See Below Exam Limited By: No Limitations General Appearance: Alert, No Apparent Distress Ears: Normal External Exam Nose: Normal Inspection Head: Atraumatic, Normocephalic Neck: Normal Inspection Respiratory/Chest: No Respiratory Distress, Lungs Clear, Normal Breath Sounds Cardiovascular: Regular Rate, Rhythm, No Edema, No Murmur GI/Abdominal: Soft, Non-Tender, No Organomegaly, No Mass Back Exam: Normal Inspection Extremities: Normal Inspection Neurological: Alert, Oriented, No Motor/Sensory Deficits EKG INTERPRETATION EKG Date: 05/04/19 Time: 11:35 Rhythm: NSR Rate (Beats/Min): [address] [place]: Normal P-Wave: Present QRS: Normal ST-T: Normal QT: Normal Course - Vital Signs Last Recorded V/S: Last Vital Signs Temp 96.0 F 05/04/19 10:22 Pulse 95 05/04/19 10:22 Resp 18 05/04/19 10:22 BP 98/82 05/04/19 10:22 Pulse Ox - Orders/Labs/Meds Orders: Active Orders 24 hr Category Date Time Status Cardiac Monitoring [RC] . DIRECTED Care 05/04/19 10:56 Active EKG Documentation Completion [RC] STAT Care 05/04/19 10:56 Active Head wo Cont [CT] Stat Exams 05/04/19 10:59 Taken Labs: Laboratory Tests 05/04/19 05/04/19 05/04/19 Range/Units 11:20 11:20 11:40 WBC 8.37 (3.98-10.04) K/mm3 RBC 3.99 (3.98-5.22) M/mm3 Hgb 12.4 (11.2-15.7) gm/dl Hct 38.7 (34.1-44.9) % MCV 97.0 H (79.4-94.8) fl MCH 31.1 (25.6-32.2) pg MCHC 32.0 L (32.2-35.5) g/dl RDW Std Deviation 47.6 H (36.4-46.3) fL Plt Count 326 (182-369) K/mm3 MPV 9.2 L (9.4-12.3) fl Neut % (Auto) 67.1 (34.0-71.1) % Lymph % (Auto) 16.2 L (19.3-51.7) % [place] % (Auto) 12.8 H (4.7-12.5) % Eos % (Auto) 3.5 (0.7-5.8) Baso % (Auto) 0.2 (0.1-1.2) % Neut # (Auto) 5.61 (1.56-6.13) K/mm3 Lymph # (Auto) 1.36 (1.18-3.74) K/mm3 [place] # (Auto) 1.07 H (0.24-0.36) K/mm3 Eos # (Auto) 0.29 (0.04-0.36) K/mm3 Baso # (Auto) 0.02 (0.01-0.08) K/mm3 Sodium 138 (136-145) mEq/L Potassium 4.0 (3.5-5.1) mEq/L Chloride 102 (98-107) mEq/L Carbon Dioxide 30 (21-32) mEq/L Anion Gap 10.0 (5-15) BUN 15 (7-18) mg/dL Creatinine 1.3 H (0.55-1.02) mg/dL Est Cr Clr Drug Dosing 32.83 mL/min Estimated GFR (MDRD) 40 (>60) mL/min BUN/Creatinine Ratio 11.5 L (14-18) Glucose 156 H (83-115) mg/dL Calcium 9.9 (8.5-10.1) mg/dL Total Bilirubin 0.5 (0.2-1.0) mg/dL AST 19 (15-37) U/L ALT 31 (14-59) U/L Alkaline Phosphatase 59 (46-116) U/L Creatine Kinase 67 (26-192) U/L Total Protein 6.8 (6.4-8.2) g/dl Albumin 3.3 L (3.4-5.0) g/dl Globulin 3.5 gm/dL Albumin/Globulin Ratio 0.9 L (1-2) Urine Color Yellow (Yellow) Urine Appearance Clear (Clear) Urine pH 7.0 (5.0-8.0) Ur Specific [place] 1.020 (1.005-1.030) Urine Protein Negative (Negative) Urine Glucose (UA) Negative (Negative) Urine Ketones Negative (Negative) Urine Occult Blood Negative (Negative) Urine Nitrite Negative (Negative) Urine Bilirubin Negative (Negative) Urine Urobilinogen 0.2 (0.2-1.0) Ur Leukocyte Esterase 1+ H (Negative) Urine RBC 0-5 (0-5) /hpf Urine WBC 10-20 H (0-5) /hpf Ur Squamous Epith Cells 5-10 H (0-5) /hpf Urine Bacteria Few (FEW) /hpf Urine Mucus Few (FEW) /hpf Meds: Medications Discontinued Medications Generic Name Dose Route Start Last Admin Trade Name Freq PRN Reason Stop Dose Admin Ondansetron HCl 4 mg 10/21/19 10:57 05/04/19 11:09 Zofran Odt PO 05/04/19 10:58 4 mg ONETIME ONE Administration - Re-Assessments/Exams Free Text/Narrative Re-Assessment/Exam: 05/04/19 11:36 I ordered an EKG, CT of her head labs, UA and zofran 4mg PO. 05/04/19 12:25 Her CBC looks good. Her creatinine was elevated slightly at 1.3. Her glucose is elevated at 156. Her UA is negative. 05/04/19 12:26 Her EKG shows nothing acute. The CT of her head looks good. Departure - Departure Time of Disposition: 12:30 Disposition: Home, Self-Care 01 Condition: Good Clinical Impression: Headache Qualifiers: Headache type: unspecified Headache chronicity pattern: acute headache Intractability: not intractable Qualified Code(s): R51 - Headache Nausea & vomiting Qualifiers: Vomiting type: unspecified Vomiting Intractability: non-intractable Qualified Code(s): R11.2 - Nausea with vomiting, unspecified Adverse reaction to antidepressant drug Qualifiers: Encounter type: initial encounter Qualified Code(s): T43.205A - Adverse effect of unspecified antidepressants, initial encounter - Discharge Information *PRESCRIPTION DRUG MONITORING PROGRAM REVIEWED*: No *COPY OF PRESCRIPTION DRUG MONITORING REPORT IN PATIENT VAN: No Prescriptions: Ondansetron [Zofran ODT] 4 mg PO Q6H PRN #20 tab.dis PRN Reason: Nausea\vomiting Referrals: Chet Prater MD [Primary Care Provider] - 1 Week Forms: ED Department Discharge Additional Instructions: Take a dose of Wellbutrin tonight and then a half a dose tomorrow night and then you can stop. Take tylenol or motrin for any headache. Take zofran every 6 hours as needed for nausea and vomiting. Please return if you are worse. - My Orders Last 24 Hours: My Active Orders 05/04/19 10:56 Cardiac Monitoring [RC] . DIRECTED EKG Documentation Completion [RC] STAT 05/04/19 10:59 Head wo Cont [CT] Stat - Assessment/Plan Last 24 Hours: My Active Orders 05/04/19 10:56 Cardiac Monitoring [RC] . DIRECTED EKG Documentation Completion [RC] STAT 05/04/19 10:59 Head wo Cont [CT] Stat
--- NOTE | 2019-05-04 12:29 | CT ---
Head CT Technique: Multiple axial sections through the brain were obtained. Intravenous contrast was not utilized. Comparison: No prior head CT exam. Findings: Ventricles along with basal cisterns and sulci over the convexities are mildly prominent. No abnormal parenchymal densities are seen. No evidence of intracranial hemorrhage. No midline shift or mass effect is seen. Mastoid sinuses are clear. Visualized paranasal sinuses are clear. No acute calvarial abnormality is appreciated. Impression: 1. No acute abnormality is appreciated on noncontrast head CT exam. Diagnostic code #2
== END 2019-05-04 12:45 | disposition home or self-care (01) ==
LOC: JD.ED 10:15
DX: R51 Headache (principal); R11.2 Nausea with vomiting, unspecified; T43.295A Adverse effect of other antidepressants, initial encounter; I25.10 Atherosclerotic heart disease of native coronary artery without angina pectoris; E78.00 Pure hypercholesterolemia, unspecified; I25.2 Old myocardial infarction; E11.22 Type 2 diabetes mellitus with diabetic chronic kidney disease; I12.9 Hypertensive chronic kidney disease with stage 1 through stage 4 chronic kidney disease, or unspecified chronic kidney disease; N18.9 Chronic kidney disease, unspecified; K21.9 Gastro-esophageal reflux disease without esophagitis; E03.9 Hypothyroidism, unspecified; F32.9 Major depressive disorder, single episode, unspecified; M81.0 Age-related osteoporosis without current pathological fracture; M19.90 Unspecified osteoarthritis, unspecified site; E66.9 Obesity, unspecified; Z68.39 Body mass index [BMI] 39.0-39.9, adult; Z88.6 Allergy status to analgesic agent; Z88.8 Allergy status to other drugs, medicaments and biological substances; Z88.5 Allergy status to narcotic agent; Z95.1 Presence of aortocoronary bypass graft; Z95.5 Presence of coronary angioplasty implant and graft; Z79.890 Hormone replacement therapy; Z79.899 Other long term (current) drug therapy; Z79.82 Long term (current) use of aspirin; Z79.84 Long term (current) use of oral hypoglycemic drugs; Z79.02 Long term (current) use of antithrombotics/antiplatelets
CPT/HCPCS: 36415; 70450; 80053; 81001; 82550; 85025; 93005; 99284; A9270; 93010; 99283

== ENCOUNTER 2019-06-22 12:53 | Emergency (ER) | payer MEDICARE, BC ==
[2019-06-22 12:57] VITALS: BP 186/99; PULSE 90
[2019-06-22] MEDS ORDERED: Sodium Chloride 0.9% 10 ML Syringe FLUSH PRN (13:04)
--- NOTE | 2019-06-22 13:20 | EDM.PDOC ---
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 Hx of CAD. Last MT about 4 yrs ago. Hx Htn. Saw Cardiology about a month ago and was doing well at that time. Has been having more frequent chest pains the past 2 weeks and especially the last 3 to 4 days. No cough, fever, chills, nausea, vomiting or diaphoresis. 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: Reports: Nitroglycerin Middle Chest Pain Score (Numeric/FACES): 6 - Related Data Allergies Allergy/AdvReac Type Severity Reaction Status Date / Time rofecoxib [From Vioxx] Allergy Intermediate Edema Verified 06/22/19 12:57 gemfibrozil [From Lopid] Allergy Unknown Cannot Verified 06/22/19 12:57 Remember atorvastatin Allergy Cannot Verified 06/22/19 12:57 Remember bupropion Allergy Tremors Verified 06/22/19 12:57 fluvastatin Allergy Cannot Verified 06/22/19 12:57 Remember haloperidol [From Haldol] AdvReac Intermediate Tremors Verified 06/22/19 12:57 haloperidol lactate AdvReac Intermediate Tremors Verified 06/22/19 12:57 [From Haldol] morphine AdvReac Hallucinati Verified 06/22/19 12:57 ons Home Meds: Home Meds Clopidogrel [Plavix] 75 mg PO DAILY 06/03/19 [History] Dulaglutide [Trulicity] 1.5 mg SQ SA 06/03/19 [History] Ezetimibe [Zetia] 10 mg PO BEDTIME 06/03/19 [History] FLUoxetine HCl [Prozac] 40 mg PO DAILY 06/03/19 [History] Fesoterodine Fumarate [Toviaz] 8 mg PO DAILY 06/03/19 [History] Glimepiride 4 mg PO DAILY 06/03/19 [History] Isosorbide Mononitrate [Imdur] 60 mg PO BEDTIME 06/03/19 [History] Levothyroxine 150 mcg PO ACBREAKFAST 06/03/19 [History] Metoprolol Succinate [Toprol XL] 12.5 mg PO DAILY 06/03/19 [History] Omeprazole 40 mg PO DAILY 06/03/19 [History] Ondansetron [Zofran] 4 mg PO Q6H PRN 06/03/19 [History] Rosuvastatin [Crestor] 10 mg PO DAILY 06/03/19 [History] Past Medical History HEENT History: Reports: Cataract Cardiovascular History: Reports: CAD, High Cholesterol, Hypertension, [place] Other Cardiovascular History: 2010 bypass .2011 stents x 2 --LAD and circumflex. Gastrointestinal History: Reports: GERD Genitourinary History: Reports: Chronic Renal Insuffiency Other Genitourinary History: urinary frequency Musculoskeletal History: Reports: Fracture, Osteoarthritis, Osteoporosis Psychiatric History: Reports: Depression, Other (See Below) Endocrine/Metabolic History: Reports: Diabetes, Type II, Hypothyroidism, Obesity /BMI 30+ - Infectious Disease History Infectious Disease History: Reports: MRSA Other Infectious Disease History: MRSA to chest incision, tested four times since, came back negative. confirmed with [facility] as being clear of MRSA - Past Surgical History HEENT Surgical History: Reports: Oral Surgery, Tonsillectomy Cardiovascular Surgical History: Reports: Coronary Artery Bypass, Coronary Artery Stent GI Surgical History: Reports: Bariatric Procedure, Cholecystectomy Neurological Surgical History: Reports: C-Spine, Lumbar Spine Musculoskeletal Surgical History: Reports: Hip Replacement, Knee Replacement Social & Family History - Tobacco Use Smoking Status *Q: Never Smoker - Caffeine Use Caffeine Use: Reports: None - Living Situation & Occupation Living situation: Reports: Single, Alone 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 Denies: Wheezing, Pleuritic Chest Pain, Cough Cardiovascular: Reports: Chest Pain Endocrine: Reports: Fatigue GI/Abdominal: Denies: Abdominal Pain, Nausea, Vomiting Musculoskeletal: Denies: Neck Pain, Shoulder Pain, Arm Pain, Back Pain, Leg Pain Skin: Denies: Rash Neurological: Reports: Dizziness ED EXAM, GENERAL - Physical Exam Exam: See Below General Appearance: Alert, No Apparent Distress Eye Exam: Bilateral Eye: PERRL Throat/Mouth: Normal Inspection, Normal Oropharynx Head: Atraumatic. No: Facial Swelling Neck: Supple, Full Range of Motion, Other (no JVD) Respiratory/Chest: No Respiratory Distress, Lungs Clear, Normal Breath Sounds Cardiovascular: Regular Rate, Rhythm GI/Abdominal: Soft, Non-Tender Back Exam: No: CVA Tenderness (L), CVA Tenderness (R) Extremities: Normal Inspection, Normal Range of Motion. No: Pedal Edema, Leg Pain, Increased Warmth, Redness Neurological: Alert, Oriented, No Motor/Sensory Deficits Skin Exam: Warm, Dry, Normal Color EKG INTERPRETATION EKG Date: 06/22/19 Rhythm: NSR [place]: Normal P-Wave: Present QRS: Other (q waves V2) ST-T: Depressed (inf. leads and also V5,V6.) QT: Normal Course - Vital Signs Last Recorded V/S: Last Vital Signs Temp 97.6 F 06/22/19 12:54 Pulse 90 06/22/19 12:54 Resp 18 06/22/19 12:54 BP 186/99 H 06/22/19 12:54 Pulse Ox - Orders/Labs/Meds Labs: Laboratory Tests 06/22/19 06/22/19 06/22/19 Range/Units 12:55 12:55 12:55 WBC 10.22 H (3.98-10.04) K/mm3 RBC 4.33 (3.98-5.22) M/mm3 Hgb 13.6 (11.2-15.7) gm/dl Hct 42.1 (34.1-44.9) % MCV 97.2 H (79.4-94.8) fl MCH 31.4 (25.6-32.2) pg MCHC 32.3 (32.2-35.5) g/dl RDW Std Deviation 47.0 H (36.4-46.3) fL Plt Count 305 (182-369) K/mm3 MPV 9.2 L (9.4-12.3) fl Neut % (Auto) 69.0 (34.0-71.1) % Lymph % (Auto) 17.4 L (19.3-51.7) % [place] % (Auto) 10.6 (4.7-12.5) % Eos % (Auto) 2.5 (0.7-5.8) Baso % (Auto) 0.2 (0.1-1.2) % Neut # (Auto) 7.05 H (1.56-6.13) K/mm3 Lymph # (Auto) 1.78 (1.18-3.74) K/mm3 [place] # (Auto) 1.08 H (0.24-0.36) K/mm3 Eos # (Auto) 0.26 (0.04-0.36) K/mm3 Baso # (Auto) 0.02 (0.01-0.08) K/mm3 D-Dimer, Quantitative 0.64 H (0.19-0.50) mg/L Sodium 140 (136-145) mEq/L Potassium 4.2 (3.5-5.1) mEq/L Chloride 104 (98-107) mEq/L Carbon Dioxide 27 (21-32) mEq/L Anion Gap 13.2 (5-15) BUN 20 H (7-18) mg/dL Creatinine 1.3 H (0.55-1.02) mg/dL Est Cr Clr Drug Dosing 34.27 mL/min Estimated GFR (MDRD) 40 (>60) mL/min BUN/Creatinine Ratio 15.4 (14-18) Glucose 129 H (83-115) mg/dL Calcium 9.9 (8.5-10.1) mg/dL Total Bilirubin 0.4 (0.2-1.0) mg/dL AST 18 (15-37) U/L ALT 32 (14-59) U/L Alkaline Phosphatase 62 (46-116) U/L Troponin I < 0.017 (0.00-0.056) ng/mL NT-Pro-B Natriuret Pep (0-125) pg/mL Total Protein 7.3 (6.4-8.2) g/dl Albumin 3.7 (3.4-5.0) g/dl Globulin 3.6 gm/dL Albumin/Globulin Ratio 1.0 (1-2) 06/22/19 06/22/19 Range/Units 12:55 16:00 WBC (3.98-10.04) K/mm3 RBC (3.98-5.22) M/mm3 Hgb (11.2-15.7) gm/dl Hct (34.1-44.9) % MCV (79.4-94.8) fl MCH (25.6-32.2) pg MCHC (32.2-35.5) g/dl RDW Std Deviation (36.4-46.3) fL Plt Count (182-369) K/mm3 MPV (9.4-12.3) fl Neut % (Auto) (34.0-71.1) % Lymph % (Auto) (19.3-51.7) % [place] % (Auto) (4.7-12.5) % Eos % (Auto) (0.7-5.8) Baso % (Auto) (0.1-1.2) % Neut # (Auto) (1.56-6.13) K/mm3 Lymph # (Auto) (1.18-3.74) K/mm3 [place] # (Auto) (0.24-0.36) K/mm3 Eos # (Auto) (0.04-0.36) K/mm3 Baso # (Auto) (0.01-0.08) K/mm3 D-Dimer, Quantitative (0.19-0.50) mg/L Sodium (136-145) mEq/L Potassium (3.5-5.1) mEq/L Chloride (98-107) mEq/L Carbon Dioxide (21-32) mEq/L Anion Gap (5-15) BUN (7-18) mg/dL Creatinine (0.55-1.02) mg/dL Est Cr Clr Drug Dosing mL/min Estimated GFR (MDRD) (>60) mL/min BUN/Creatinine Ratio (14-18) Glucose (83-115) mg/dL Calcium (8.5-10.1) mg/dL Total Bilirubin (0.2-1.0) mg/dL AST (15-37) U/L ALT (14-59) U/L Alkaline Phosphatase (46-116) U/L Troponin I < 0.017 (0.00-0.056) ng/mL NT-Pro-B Natriuret Pep 267 H (0-125) pg/mL Total Protein (6.4-8.2) g/dl Albumin (3.4-5.0) g/dl Globulin gm/dL Albumin/Globulin Ratio (1-2) Meds: Medications Discontinued Medications Generic Name Dose Route Start Last Admin Trade Name Masoud PRN Reason Stop Dose Admin Acetaminophen 975 mg 06/22/19 17:07 06/22/19 17:12 Tylenol PO 06/22/19 17:08 975 mg NOW ONE Administration Aspirin 162 mg 06/22/19 13:29 06/22/19 13:34 Aspirin PO 06/22/19 13:30 162 mg ONETIME ONE Administration Sodium Chloride 10 ml 06/22/19 13:04 06/22/19 13:07 Saline Flush FLUSH 10 ml ASDIRECTED PRN Administration Keep Vein Open - Re-Assessments/Exams Free Text/Narrative Re-Assessment/Exam: 06/23/19 22:58 Initial trop did come back nl, did a 2nd 3 hr trop that also did come back nl, CXR looks good, she has been resting comfortably, CXR looked nl, NSR, no ectopy , discharge instr. as documented. Departure - Departure Time of Disposition: 17:11 Disposition: Home, Self-Care 01 Condition: Fair Clinical Impression: Atypical chest pain Instructions: Nonspecific Chest Pain, [id number] Referrals: PCP,Unknown [Primary Care Provider] - Forms: ED Department Discharge Additional Instructions: Your heart and lungs have checked out well today. Be sure to take your metropolol when you get home. Continue other current medications as prescribed. See Dr Prater this as planned. Return to ED as needed if symptoms worsening in any way. Sepsis Event Note - Focused Exam Date Exam was Performed: 06/23/19 Time Exam was Performed: 22:58
[2019-06-22] MEDS ORDERED: Aspirin 81 MG Tab.Chew PO ONE (13:29)
--- NOTE | 2019-06-22 13:42 | CR ---
Chest: Portable view of the chest was obtained. Comparison: Prior chest x-ray of 10/22/18. Heart is slightly enlarged but accentuated from portable technique. Previous sternotomy is noted. Previous cervical spine surgery is seen. Lungs are clear with no acute parenchymal change. Previous lumbar spine surgery is noted. Degenerative change is noted within both shoulders and acromioclavicular joints. Impression: 1. Findings as noted above. 2. Nothing acute is seen on portable chest x-ray. Diagnostic code #2 This report was dictated in [place] Standard Time
[2019-06-22] MEDS ORDERED: Acetaminophen 325 MG Tab PO ONE (17:07)
== END 2019-06-22 17:25 | disposition home or self-care (01) ==
LOC: JD.ED 12:53
DX: R07.89 Other chest pain (principal); I25.10 Atherosclerotic heart disease of native coronary artery without angina pectoris; I25.2 Old myocardial infarction; E78.00 Pure hypercholesterolemia, unspecified; F32.9 Major depressive disorder, single episode, unspecified; E03.9 Hypothyroidism, unspecified; K21.9 Gastro-esophageal reflux disease without esophagitis; E66.9 Obesity, unspecified; E11.22 Type 2 diabetes mellitus with diabetic chronic kidney disease; I12.9 Hypertensive chronic kidney disease with stage 1 through stage 4 chronic kidney disease, or unspecified chronic kidney disease; N18.9 Chronic kidney disease, unspecified; Z88.8 Allergy status to other drugs, medicaments and biological substances; Z88.5 Allergy status to narcotic agent; Z79.01 Long term (current) use of anticoagulants; Z68.37 Body mass index [BMI] 37.0-37.9, adult; Z79.84 Long term (current) use of oral hypoglycemic drugs; Z79.899 Other long term (current) drug therapy; Z95.5 Presence of coronary angioplasty implant and graft
CPT/HCPCS: 36415; 71045; 80053; 83880; 84484; 85025; 85379; 93005; 99285; A9270; 93010; 99283

== ENCOUNTER 2019-07-02 08:45 | Day surgery (SDC) | payer MEDICARE, BC ==
[~2019-07-02 08:45] MED LIST: Cefuroxime 10 MG/ML SYRINGE EYELF SCH; Lidocaine 1% PF 2 ML SDV INJECT SCH; Pilocarpine 4% Ophth Soln 15 ML Bot EYELF SCH
[2019-07-02] MEDS: Polymyxin B/Trimethoprim 10 ML Bottle EYELF SCH ×3 (09:23→11:09)
[2019-07-02] MEDS: Brimonidine 0.2% Ophth Soln 5 ML Bottle EYELF SCH ×3 (09:28→11:09)
--- NOTE | 2019-07-02 09:43 | PCM.PREANE ---
Preanesthetic Assessment - Anesthesia/Transfusion/Family Hx Anesthesia History: Prior Anesthesia Without Reaction Family History of Anesthesia Reaction: No Transfusion History: Prior Transfusion Without Reaction - Review of Systems General: No Symptoms Pulmonary: No Symptoms Cardiovascular: No Symptoms Gastrointestinal: No Symptoms Neurological: No Symptoms Other: Reports: None - Physical Assessment NPO Status Date: 07/01/19 NPO Status Time: 21:00 ASA Class: 2 Mental Status: Alert & Oriented x3 Airway Class: Mallampati = 1 Dentition: Reports: Normal Dentition Thyro-Mental Finger Breadths: 3 Mouth Opening Finger Breadths: 3 ROM/Head Extension: Full Lungs: Clear to Auscultation, Normal Respiratory Effort Cardiovascular: Regular Rate, Regular Rhythm - Allergies Allergies/Adverse Reactions: Allergies Allergy/AdvReac Type Severity Reaction Status Date / Time rofecoxib [From Vioxx] Allergy Intermediate Edema Verified 07/01/19 16:42 gemfibrozil [From Lopid] Allergy Unknown Cannot Verified 07/01/19 16:42 Remember atorvastatin Allergy Cannot Verified 07/01/19 16:42 Remember bupropion Allergy Tremors Verified 07/01/19 16:42 fluvastatin Allergy Cannot Verified 07/01/19 16:42 Remember haloperidol [From Haldol] AdvReac Intermediate Tremors Verified 07/01/19 16:42 haloperidol lactate AdvReac Intermediate Tremors Verified 07/01/19 16:42 [From Haldol] morphine AdvReac Hallucinati Verified 07/01/19 16:42 ons - Anesthesia Plan Beta Jhonny: Metoprolol Med Last Dose Date: 07/01/19 Med Last Dose Time: 21:00 - Acknowledgements Anesthesia Type Planned: MAC Pt an Appropriate Candidate for the Planned Anesthesia: Yes Alternatives and Risks of Anesthesia Discussed w Pt/Guardian: Yes Pt/Guardian Understands and Agrees with Anesthesia Plan: Yes PreAnesthesia Questionnaire HEENT History: Reports: Cataract Cardiovascular History: Reports: CAD, High Cholesterol, Hypertension, [place] Other Cardiovascular History: 2010 bypass .2011 stents x 2 --LAD and circumflex. Respiratory History: Reports: None Gastrointestinal History: Reports: GERD Genitourinary History: Reports: Chronic Renal Insuffiency Other Genitourinary History: urinary frequency Musculoskeletal History: Reports: Fracture (lower back), Osteoarthritis, Osteoporosis Psychiatric History: Reports: Depression, Other (See Below) Endocrine/Metabolic History: Reports: Diabetes, Type II, Hypothyroidism, Obesity /BMI 30+ - Infectious Disease History Infectious Disease History: Reports: MRSA Other Infectious Disease History: MRSA to chest incision, tested four times since, came back negative. confirmed with [facility] as being clear of MRSA - Past Surgical History HEENT Surgical History: Reports: Cataract Surgery, Oral Surgery, Tonsillectomy Cardiovascular Surgical History: Reports: Coronary Artery Bypass, Coronary Artery Stent GI Surgical History: Reports: Bariatric Procedure, Cholecystectomy Neurological Surgical History: Reports: C-Spine, Lumbar Spine, Spinal Fusion Musculoskeletal Surgical History: Reports: Hip Replacement, Knee Replacement - SUBSTANCE USE Smoking Status *Q: Former Smoker - HOME MEDS Home Medications: Home Meds Clopidogrel [Plavix] 75 mg PO DAILY 06/03/19 [History] Dulaglutide [Trulicity] 1.5 mg SQ SA 06/03/19 [History] Ezetimibe [Zetia] 10 mg PO BEDTIME 06/03/19 [History] FLUoxetine HCl [Prozac] 40 mg PO DAILY 06/03/19 [History] Fesoterodine Fumarate [Toviaz] 8 mg PO DAILY 06/03/19 [History] Glimepiride 4 mg PO DAILY 06/03/19 [History] Isosorbide Mononitrate [Imdur] 90 mg PO BEDTIME 06/03/19 [History] Levothyroxine 150 mcg PO ACBREAKFAST 06/03/19 [History] Metoprolol Succinate [Toprol XL] 25 mg PO BID 06/03/19 [History] Omeprazole 40 mg PO DAILY 06/03/19 [History] Ondansetron [Zofran] 4 mg PO Q6H PRN 06/03/19 [History] Rosuvastatin [Crestor] 10 mg PO DAILY 06/03/19 [History] - CURRENT (IN HOUSE) MEDS Current Meds: Current Medications Brimonidine Tartrate (Alphagan 0.2% Ophth Soln) 0 ml EYELF ASDIRECTED ERIN Stop: 07/02/19 18:00 Last Admin: 07/02/19 09:28 Dose: 1 drop Cefuroxime Sodium (Zinacef) 0 mg EYELF ASDIRECTED ERIN Stop: 07/02/19 18:00 Lidocaine HCl (Xylocaine-Mpf 1%) 0 ml INJECT ASDIRECTED ERIN Stop: 07/02/19 18:00 Phenylephrine HCl (Kai-Synephrine 2.5% Ophth Soln) 0 ml EYELF ASDIRECTED ERIN Stop: 07/02/19 18:00 Pilocarpine HCl (Pilocar 4% Ophth Soln) 0 ml EYELF ASDIRECTED ERIN Stop: 07/02/19 18:00 Polymyxin/Trimethoprim Sulfate (Polytrim Ophth Soln) 0 ml EYELF ASDIRECTED ERIN Stop: 07/02/19 18:00 Last Admin: 07/02/19 09:23 Dose: 1 drop Tetracaine HCl (Tetracaine 0.5% Steri-Unit Gila) 0 ml EYELF ASDIRECTED ERIN Stop: 07/02/19 18:00 Tropicamide (Mydriacyl 1% Ophth Soln) 0 ml EYELF ASDIRECTED ERIN Stop: 07/02/19 18:00
[2019-07-02] MEDS: Phenylephrine 2.5% Ophth Soln 2 ML Bot EYELF SCH ×5 (09:46→10:49)
[2019-07-02] MEDS: Tropicamide 1% Ophth Soln 15 ML Bottle EYELF SCH ×4 (09:52→10:34)
[2019-07-02] MEDS ORDERED: Sodium Chloride 0.9% 10 ML Syringe FLUSH PRN ×2 (09:53→10:05)
[2019-07-02] MEDS ORDERED: Lidocaine 1%/Sod Bicarbonate in NS 8.4% 1 ML Syringe IDERM PRN ×2 (09:53→10:05)
[2019-07-02] MEDS ORDERED: Lactated Ringers 1,000 ML IV SCH ×2 (10:00→10:15)
[2019-07-02] MEDS ORDERED: Midazolam 1 MG/ML 2 ML SDV ONE (10:30)
[2019-07-02] MEDS ORDERED: Propofol 200 MG/20 ML SDV ONE (10:30)
[2019-07-02] MEDS: Tetracaine HCl/PF 0.5% 4 ML Bottle EYELF SCH ×2 (10:38→10:59)
--- NOTE | 2019-07-02 11:10 | PCM48HPAN ---
Post Anesthesia Note - EVALUATION WITHIN 48HRS OF ANESTHETIC Vital Signs in Normal Range: Yes Patient Participated in Evaluation: Yes Respiratory Function Stable: Yes Airway Patent: Yes Cardiovascular Function Stable: Yes Hydration Status Stable: Yes Pain Control Satisfactory: Yes Nausea and Vomiting Control Satisfactory: Yes Mental Status Recovered: Yes Vital Signs: Last Vital Signs Temp 36.1 C 07/02/19 09:10 Pulse 80 07/02/19 09:10 Resp 16 07/02/19 09:10 BP 135/85 07/02/19 09:10 Pulse Ox 98 07/02/19 09:10
[2019-07-02 11:25] VITALS: BP 109/63; PULSE 79
== END 2019-07-02 11:31 | disposition home or self-care (01) ==
LOC: JD.SDS 08:45
PROVIDERS: ATTEND Ophthalmology
DX: E11.36 Type 2 diabetes mellitus with diabetic cataract (principal); H25.812 Combined forms of age-related cataract, left eye; H35.371 Puckering of macula, right eye; H02.831 Dermatochalasis of right upper eyelid; H02.834 Dermatochalasis of left upper eyelid; E78.00 Pure hypercholesterolemia, unspecified; I10 Essential (primary) hypertension; M19.90 Unspecified osteoarthritis, unspecified site; F32.9 Major depressive disorder, single episode, unspecified; J30.1 Allergic rhinitis due to pollen; Z96.1 Presence of intraocular lens; Z87.891 Personal history of nicotine dependence; Z79.899 Other long term (current) drug therapy; Z79.02 Long term (current) use of antithrombotics/antiplatelets; Z79.84 Long term (current) use of oral hypoglycemic drugs; Z88.5 Allergy status to narcotic agent; Z88.8 Allergy status to other drugs, medicaments and biological substances
CPT/HCPCS: 66984; J0697; J2001; J2250; J2704; J7120; C1780

== ENCOUNTER 2023-11-11 19:28 | Emergency (ER) | payer MEDICARE, BC ==
[2023-11-11] MEDS: Sodium Chloride 0.9% 1,000 ML IV ONE (20:56)
[2023-11-11] MEDS: Aluminum Hydroxide/Magnesium Hydroxide/Simethicone Susp 30 ML Cup PO ONE (20:57)
[2023-11-11] MEDS: Famotidine 20 MG/2 ML SDV IVPUSH ONE (20:57)
[2023-11-11 21:00] LABS: BASOPHILS PERCENT AUTO 0.3 % (0.0-1.0); EOSINOPHILS PERCENT AUTO 0.3 % (0.0-6.0); HEMATOCRIT 38.9 % (37.0-47.0); IMMATURE GRAN ABSOLUTE AUTO 0.06 K/mm3 (0.00-0.05); IMMATURE GRAN PERCENT AUTO 0.8 % (0.0-0.4); LYMPHOCYTES PERCENT AUTO 12.4 % (24.0-44.0); MEAN CORPUSCULAR HEMOGLOBIN 32.3 pg (28.0-32.0); MEAN CORPUSCULAR HGB CONC 33.4 g/dl (32.0-36.0); MEAN CORPUSCULAR VOLUME 96.8 fl (83.0-99.0); MEAN PLATELET VOLUME 9.7 fl (9.4-12.3); MONOCYTES ABSOLUTE AUTO 1.6 K/mm3 (0.0-0.8); MONOCYTES PERCENT AUTO 19.9 % (0.0-8.0); NEUTROPHILS ABSOLUTE AUTO 5.2 K/mm3 (1.8-7.7); NEUTROPHILS PERCENT AUTO 66.3 % (41.0-71.0); PLATELET COUNT,PLT 231 K/mm3 (150-400); RED BLOOD CELL COUNT 4.02 M/mm3 (4.10-5.30); WHITE BLOOD CELL COUNT,WBC 7.89 K/mm3 (3.9-11.3)
[2023-11-11 21:19] LABS: APPEARANCE,URINE CLEAR (Clear); BILIRUBIN,URINE 1+ (Negative); COLOR,URINE YELLOW (Yellow); GLUCOSE,URINE NEGATIVE (Negative); KETONES,URINE 1+ (Negative); LEUKOCYTE ESTERASE,URINE NEGATIVE (Negative); NITRITE,URINE NEGATIVE (Negative); OCCULT BLOOD,URINE TRACE-LYSED (Negative); PROTEIN,URINE 2+ (Negative); UROBILINOGEN,URINE 0.2 (0.2-1.0)
[2023-11-11 21:30] LABS: ALBUMIN 3.3 g/dl (3.4-5.0); ANION GAP 16.4 (5-15); BILIRUBIN TOTAL 0.5 mg/dL (0.2-1.0); BUN/CREATININE RATIO 12.2 (14-18); CREATININE 1.8 mg/dL (0.55-1.02); EST CRCL DRUG DOSING (CG) 21.99 mL/min; POTASSIUM,K 3.4 mEq/L (3.5-5.1); PROTEIN TOTAL,TP 6.7 g/dl (6.4-8.2)
[2023-11-11 21:34] LABS: BACTERIA,URINE FEW /hpf (FEW); MUCUS,URINE FEW /hpf (FEW); RBC,URINE 0-5 /hpf (0-5); SQUAMOUS EPITHELIAL CELLS,UR 0-5 /hpf (0-5); WBC,URINE 0-5 /hpf (0-5)
[2023-11-12] MEDS: Dicyclomine 10 MG Cap PO ONE (00:21)
[2023-11-12 07:15] VITALS: BP 144/65; PULSE 87
== END 2023-11-12 06:48 | disposition home or self-care (01) ==
LOC: JD.ED 19:28
DX: R19.7 Diarrhea, unspecified (principal); I25.10 Atherosclerotic heart disease of native coronary artery without angina pectoris; E78.00 Pure hypercholesterolemia, unspecified; K21.9 Gastro-esophageal reflux disease without esophagitis; E11.9 Type 2 diabetes mellitus without complications; E03.9 Hypothyroidism, unspecified; I10 Essential (primary) hypertension; I25.2 Old myocardial infarction; E66.9 Obesity, unspecified; Z68.41 Body mass index [BMI] 40.0-44.9, adult; Z88.1 Allergy status to other antibiotic agents; Z88.8 Allergy status to other drugs, medicaments and biological substances; Z88.5 Allergy status to narcotic agent; Z79.899 Other long term (current) drug therapy; Z90.49 Acquired absence of other specified parts of digestive tract
CPT/HCPCS: 36415; 74176; 80053; 81001; 83690; 83880; 84484; 85025; 93005; 96361; 96374; 99284; A9270; J3490; J7030; 93010